=== PATIENT | female | born 1950 | race Two or more races ===

== ENCOUNTER 2017-04-19 10:52 | Emergency (ER) | payer OTHER ==
[2017-04-19 11:09] VITALS: BP 136/88
== END 2017-04-19 12:50 | disposition home or self-care (01) ==
LOC: ED 10:52
DX: L02.212 Cutaneous abscess of back [any part, except buttock and flank] (principal); E78.00 Pure hypercholesterolemia, unspecified; I10 Essential (primary) hypertension; E11.9 Type 2 diabetes mellitus without complications
CPT/HCPCS: J2001; J3490

== ENCOUNTER 2017-04-21 17:09 | Emergency (ER) | payer OTHER ==
[2017-04-21 17:39] VITALS: BP 127/70
== END 2017-04-21 18:30 | disposition home or self-care (01) ==
LOC: ED 17:09
DX: Z48.01 Encounter for change or removal of surgical wound dressing (principal); E66.9 Obesity, unspecified; I10 Essential (primary) hypertension; E11.9 Type 2 diabetes mellitus without complications; E78.00 Pure hypercholesterolemia, unspecified

== ENCOUNTER 2017-04-26 17:26 | Emergency (ER) | payer OTHER ==
[~2017-04-26] VITALS: Ht 157.5 cm; Wt 80.9 kg
[2017-04-26 18:26] VITALS: BP 115/59
== END 2017-04-26 18:26 | disposition home or self-care (01) ==
LOC: ED 17:26
DX: Z48.00 Encounter for change or removal of nonsurgical wound dressing (principal); I10 Essential (primary) hypertension; E11.9 Type 2 diabetes mellitus without complications

== ENCOUNTER 2018-06-07 09:58 | Inpatient (IN) | payer OTHER ==
[~2018-06-07] VITALS: Ht 162.6 cm; Wt 82.0 kg
[2018-06-07 10:51] LABS: BASOPHIL % 0.4 % (0-2); PLATELET COUNT 251 x10^3mcL (130-400); RED CELL DISTRIBUTION WIDTH 13.9 % (11.5-14.5)
[2018-06-07 11:15] LABS: CALCIUM 9.2 mg/dL (8.5-10.1); CARBON DIOXIDE 24.5 mmol/L (21-32); CHLORIDE SERUM 103 mmol/L (98-107); CREATININE SERUM 0.9 mg/dL (0.6-1.0); GFR1 > 60 mL/min; GLUCOSE SERUM 137 mg/dL (74-106); POTASSIUM SERUM 3.9 mmol/L (3.5-5.1); SODIUM SERUM 138 mmol/L (136-145)
[2018-06-07 11:18] LABS: UA SPECIFIC GRAVITY <=1.005 (1.005-1.035); microscopic required? YES; urine erythrocyte NEGATIVE (NEGATIVE)
[2018-06-07 11:28] LABS: ALBUMIN 3.6 g/dL (3.4-5.0); ALKALINE PHOSPHATASE 95 U/L (46-116); ALT/SGPT 24 U/L (14-59); AST/SGOT 17 U/L (15-37); BILIRUBIN TOTAL 0.46 mg/dL (0.20-1.00)
[2018-06-07 12:02] LABS: OSMOLALITY SERUM 293 mOsm/kg (278-298)
[2018-06-07] MEDS ORDERED: ZESTRIL20 MG PO (12:56)
[2018-06-07] MEDS ORDERED: AMLODIPINE BES2.5 M1 PO (12:56)
[2018-06-07] MEDS ORDERED: METFORMIN500 M1 PO (12:56)
[2018-06-07] MEDS ORDERED: ASPIR 8181 MG PO (12:56)
[2018-06-07 14:22] VITALS: BP 140/86
[2018-06-07 14:32] LABS: AMPHETAMINE QUAL UR NONE DETECTED (See below)
[2018-06-07 14:40] LABS: T3 TOTAL 0.96 ng/mL
[2018-06-07 14:42] LABS: CHOLESTEROL/HDL RATIO 3.3; MAGNESIUM 1.8 mg/dL (1.8-2.4); PHOSPHOROUS 3.9 mg/dL (2.5-4.9)
[2018-06-07 15:27] LABS: FREE T4 1.11 ng/dL (0.76-1.46); FREE THYROXINE INDEX 2.5 ug/dL (1.4-4.5); T4(THYROXINE) 8.2 ug/dL (4.7-13.3)
[2018-06-07 17:05] VITALS: BP 122/82
[2018-06-07 20:36] VITALS: BP 118/66
[2018-06-08 05:19] VITALS: BP 122/69
[2018-06-08 06:04] LABS: BASOPHIL % 0.2 % (0-2); PLATELET COUNT 222 x10^3mcL (130-400); RED CELL DISTRIBUTION WIDTH 13.6 % (11.5-14.5)
[2018-06-08 06:29] LABS: CALCIUM 8.6 mg/dL (8.5-10.1); CARBON DIOXIDE 22.1 mmol/L (21-32); CHLORIDE SERUM 107 mmol/L (98-107); CREATININE SERUM 0.6 mg/dL (0.6-1.0); GFR1 > 60 mL/min; GLUCOSE SERUM 170 mg/dL (74-106); POTASSIUM SERUM 3.8 mmol/L (3.5-5.1); SODIUM SERUM 141 mmol/L (136-145)
[2018-06-08 09:22] VITALS: BP 150/85
[2018-06-08] MEDS ORDERED: LIPI10 PO (13:15)
[2018-06-08 13:16] VITALS: BP 121/63
[2018-06-08 13:25] VITALS: BP 121/63
[2018-06-08] MEDS ORDERED: CLA10 PO (15:51)
[2018-06-08] MEDS ORDERED: PEP20 PO (15:51)
[2018-06-08] MEDS ORDERED: MEDDP PO (15:52)
== END 2018-06-08 17:26 | disposition home or self-care (01) | DRG 206 ==
LOC: ED 09:58 → DU 13:44
PROVIDERS: Emergency Medicine; Family Medicine
DX: M94.0 Chondrocostal junction syndrome [Tietze] (principal); K21.9 Gastro-esophageal reflux disease without esophagitis; E11.9 Type 2 diabetes mellitus without complications; L23.9 Allergic contact dermatitis, unspecified cause; I10 Essential (primary) hypertension; E78.00 Pure hypercholesterolemia, unspecified; E66.9 Obesity, unspecified; Z68.31 Body mass index [BMI] 31.0-31.9, adult; Z79.82 Long term (current) use of aspirin; Z79.84 Long term (current) use of oral hypoglycemic drugs
CPT/HCPCS: 83880; 84439; J1200; J1815; J2920; J2930; J7030; Q0092

== ENCOUNTER 2019-05-07 14:43 | Emergency (ER) | payer OTHER ==
[~2019-05-07] VITALS: Ht 160 cm; Wt 75.7 kg
[~2019-05-07 14:43] MED LIST: AMLODIPINE BES2.5 M1 PO; ASPIR 8181 MG PO; CLA10 PO; LIPI10 PO; MEDDP PO; METFORMIN500 M1 PO; PEP20 PO; ZESTRIL20 MG PO
[2019-05-07 15:25] VITALS: Ht 160 cm; Wt 75.7 kg
[2019-05-07 17:30] LABS: BASOPHIL % 0.3 % (0-2); PLATELET COUNT 214 x10^3mcL (130-400)
[2019-05-07 17:35] LABS: RED CELL DISTRIBUTION WIDTH 15.4 % (11.5-14.5)
[2019-05-07 17:38] LABS: CALCIUM 9.3 mg/dL (8.5-10.1); CARBON DIOXIDE 27.5 mmol/L (21-32); CHLORIDE SERUM 105 mmol/L (98-107); CREATININE SERUM 0.6 mg/dL (0.6-1.0); GFR1 > 60 mL/min; GLUCOSE SERUM 122 mg/dL (74-106); POTASSIUM SERUM 3.6 mmol/L (3.5-5.1); SODIUM SERUM 143 mmol/L (136-145)
[2019-05-07 17:51] LABS: ALBUMIN 3.9 g/dL (3.4-5.0); ALKALINE PHOSPHATASE 123 U/L (46-116); ALT/SGPT 43 U/L (14-59); AST/SGOT 19 U/L (15-37); BILIRUBIN TOTAL 0.7 mg/dL (0.20-1.00); TOTAL PROTEIN, SERUM 7.5 g/dL (6.4-8.2)
[2019-05-07 19:22] VITALS: BP 124/88
== END 2019-05-07 19:29 | disposition home or self-care (01) ==
LOC: ED 14:43
PROVIDERS: Emergency Medicine
DX: R42 Dizziness and giddiness (principal); I10 Essential (primary) hypertension; E11.9 Type 2 diabetes mellitus without complications; E78.5 Hyperlipidemia, unspecified; Z96.651 Presence of right artificial knee joint
CPT/HCPCS: 36415; 83880; 84439; J8597; Q0162